=== PATIENT | male | born 1990 | race Two or more races ===

== ENCOUNTER 2023-11-05 16:37 | Outpatient (REF) | payer OTHER, SELFPAY ==
[2023-11-05 16:52] LABS: MANUAL DIFF FLAG NO
[2023-11-05 18:26] LABS: Basophils Percent Auto 0.5 % (0-2); Eosinophils Absolute Auto 0.4 X10*3/uL (0.0-0.4); Hematocrit 42.9 % (42.0-52.0); Hemoglobin 14.2 g/dl (14.0-18.0); Imm Gran Abs Auto 0.02 X10*3/uL (0.00-0.03); Imm Gran Pct Auto 0.3 % (0.0-0.4); Lymphocytes Absolute Auto 2.9 X10*3/uL (1.2-4.9); Mean Corpuscular HGB Conc 33.1 g/dl (31.0-36.0); Mean Corpuscular Hemoglobin 26.4 pg (27.0-33.0); Mean Corpuscular Volume 79.7 fL (80.0-98.0); Mean Platelet Volume 10.2 fL (9.4-12.4); Monocytes Absolute Auto 0.9 X10*3/uL (0.1-1.2); Monocytes Percent Auto 12.8 % (2-11); Neutrophils Absolute Auto 2.9 x10*3/uL (2.0-8.3); Neutrophils Percent Auto 40.4 % (45-73); Platelet Count 361 X10*3/uL (160-400); Red Blood Count 5.38 X10*6/uL (4.60-5.80); Red Cell Distribution Width 15.1 % (11.0-16.0); White Blood Count 7.3 X10*3/uL (4.8-10.8)
[2023-11-05 18:32] LABS: Estimated Average Glucose 105 mg/dL; Hemoglobin A1c % 5.3 % (<6.0)
[2023-11-05 18:47] LABS: Alanine Aminotransferase 39 U/L (0-40); Albumin Level 4.4 g/dL (3.5-5.0); Alkaline Phosphatase 75 U/L (39-117); Anion Gap 10 (12-20); Aspartate Amino Transferase 30 U/L (5-37); Bilirubin Total 0.3 mg/dL (0.0-1.0); Blood Urea Nitrogen 11 mg/dL (9-16); Calcium 9.8 mg/dL (8.4-10.2); Carbon Dioxide 30 mmol/L (22-29); Chloride 104 mmol/L (96-108); Cholesterol 172 mg/dL (<200); Estimated Glomerular Filt Rate > 60; Glucose Random 84 mg/dL (60-115); Potassium 3.9 mmol/L (3.3-5.1); Sodium 140 mmol/L (135-145)
[2023-11-05 19:01] LABS: Free T4 (Free Thyroxine) 0.86 ng/dL (0.71-1.85); Thyroid Stimulating Hormone 0.94 uIU/mL (0.32-4.0)
== END 2023-11-05 16:38 | disposition home or self-care (01) ==
LOC: HO.LAB 16:37
PROVIDERS: PCP Internal Medicine; Visit Provider Internal Medicine
DX: I10 Essential (primary) hypertension (principal); Z83.3 Family history of diabetes mellitus
CPT/HCPCS: 36415; 80053; 82465; 83036; 84439; 84443; 85025

== ENCOUNTER 2024-08-11 13:44 | Outpatient (REF) | payer OTHER, SELFPAY ==
[2024-08-14 19:53] LABS: TS Negative Control Passed; TS Panel A 0; TS Panel B 0; TS Positive Control Passed; TSpotTB Negative (Negative)
== END 2024-08-11 13:45 | disposition home or self-care (01) ==
LOC: HO.LAB 13:44
PROVIDERS: PCP Internal Medicine; Visit Provider Internal Medicine
DX: Z02.1 Encounter for pre-employment examination (principal)
CPT/HCPCS: 36415; 86481

== ENCOUNTER 2025-07-04 15:20 | Outpatient (AMB) | payer OTHER, SELFPAY ==
--- NOTE | 2025-07-04 15:21 | A.OFFPC_ITS ---
Vital Signs 07/04/25 15:26 Height 5 ft 9 in Weight 315 lb BMI 46.5 BP 204/130 H Blood Pressure Location Rt brachial Position Sitting Respiration 18 Pulse 91 Pulse Source Pulse Oximeter Temp 98.3 F Temp Source Temporal Artery Scan Pulse Oximetry (%) 99 Intake Visit Reasons: routine Press Operator Printing Required: No Accompanied by: Self / Same As Patient Allergies No Known Allergies Allergy (Verified 07/04/25 15:21) Tobacco use date assessed: 07/04/25 Dental Screening Did you have a dental visit in the last 12 months?: Yes HPI HPI Comments History of Present Illness Details The patient is a 35-year-old male presenting with essential hypertension. The patient reports a long-standing history of uncontrolled blood pressure for several years and was previously managed with Lisinopril under Dr. Richardson. The patient described being prescribed an increased dosage (two pills in the morning and night), which failed to control the hypertension. The patient denies any recent modifications to his antihypertensive regimen and emphasizes the persistent nature of his elevated blood pressure despite previous intervention. Hypertension is accompanied by a significant family history; his mother also suffers from hypertension, and his father due to complications related to a stroke and blood clots. The patient denies any recent symptoms such as chest pain, shortness of breath, nausea, vomiting, headaches, or weakness. Additionally, the patient has a history of cervical radiculopathy for the past 10 years and has been managed on Tramadol, Cyclobenzaprine, and Ibuprofen. The use of Tramadol has been daily with fluctuating doses corresponding to his work schedule. It is noted that the patient has had prior discussions about the dependency potential of these medications and expressed a willingness to seek alternative pain management approaches to reduce reliance on opioids. The patient?s social history of substance use is unremarkable. 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 He maintains an active lifestyle and has made significant dietary changes to support weight loss efforts, having lost 45 pounds from a past weight of 360 pounds. Medical History: - Essential Hypertension - Cervical Radiculopathy - Obesity - Chronic Allergic Rhinitis - Gastroesophageal Reflux Disease (GERD) - Needle Phobia Surgical History: - Carpal Tunnel Surgery - Tonsillectomy and Adenoidectomy Medications: - Tramadol for pain management related t o cervical radiculopathy - Cyclobenzaprine for muscle spasms - Ibuprofen as needed for pain - Fluticasone nasal spray for allergic r hinitis - Omeprazole for gastroesophageal reflux disease Family History: - Mother with Essential Hypertension - Father with a history of stroke relate d to blood clots - Father and younger brother with Diabet es Mellitus Social: - Employed in a [employer] ([employer]) with random drug testing - No tobacco use, past history of one-ti me smoking only - Minimal alcohol use: a beer once every three months - No illicit drug use; environment condu cive to a drug-free status due to employment requirements - Active lifestyle with physical activit y during work and personal time - Significant dietary changes implemente d to support weight management, notably reducing rice and bread intake [facility] Medical History (Updated 07/04/25 @ 16:03 by Danilo Urrutia MD) GERD without esophagitis Obesity (BMI 30-39.9) Cervical radiculopathy Allergic rhinitis Hypertension Social History Housing: House Patient Tobacco Use Status: Never used Tobacco e-Cigarette/Vaping Use: Never Used service: No Current occupational status: employed Current occupation: [employer] Questionnaire PHQ-9 Over the last 2 weeks, how often have you been bothered by any of the following problems? 1. Little interest or pleasure in doing things: not at all 2. Feeling down, depressed, or hopeless: not at all 3. Trouble falling or staying asleep, or sleeping too much: not at all 4. Feeling tired or having little energy: not at all 5. Poor appetite or overeating: not at all 6. Feeling bad about yourself - or that you are a failure or have let yourself or your family down: not at all 7. Trouble concentrating on things, such as reading the newspaper or watching television: not at all 8. Moving or speaking so slowly that other people could have noticed. Or the opposite - being so fidgety or restless that you have been moving around a lot more than usual: not at all 9. Thoughts that you would be better off or of hurting yourself in some way: not at all Total score: 0 Depression Screening Interpretation: Negative Depression Screening Done: Yes 18194 - PHQ-9 Billing: Yes Source: Developed by Drs. Ricci Crawford, Hortencia Dan, Audie Eckert and colleagues, with an educational alysa from [employer] Thrive Questionnaire Date Thrive assessed: 07/04/25 I am a: Patient What is your living situation today?: I have a steady place to live Within the past 12 months, did the food you bought not last and you didn't have the money to get more?: Never true Within the past 12 months, did you worry whether your food would run out before you got money to buy more?: Never true Do you have trouble paying for medicines?: No Do you have trouble getting transportation to medical appointments?: No Do you have trouble paying your heating and electricity bill?: No Do you have trouble taking care of your child, family member or friend?: No Do you have trouble with day-to-day activities such as bathing, preparing meals, shopping, managing finances, etc.?: No Are you currently unemployed and looking for a job?: No Are you interested in more education?: No THRIVE Score: 0 AUDIT C Alcohol Use Questionnaire (AUDIT-C) 1. How often do you have a drink containing alcohol?: Monthly or less 2. How many drinks containing alcohol do you have on a typical day when you are drinking?: 1 or 2 Total Score: 1 Score Reviewed/Action Taken: Yes SADAF-7 AMB Questionnaire SADAF-7 Date SADAF - 7 assessed: 07/04/25 Feeling nervous, anxious, or on edge: 0 = Not at all Not being able to stop or control worryin = Not at all Worrying too much about different things: 0 = Not at all Trouble relaxin = Not at all Being so restless that it is hard to sit still: 0 = Not at all Becoming easily annoyed or irritable: 0 = Not at all Feeling afraid as if something awful might happen: 0 = Not at all Total SADAF-7 score (0-4 normal; 5-9 mild; 10-14 moderate; 15-21 severe): 0 Source: Developed by Drs. Ricci Crawford, Hortencia Dan, Audie Eckert and colleagues, with an educational alysa from [employer]. SADAF-7 Assessment Billing SADAF-7 Assessment Tool: SADAF-7 Assessment 05223 Review of Systems Const Details: - Cardiovascular: Denies chest pain, palpitations - Respiratory: Denies shortness of breath, cough - Gastrointestinal: Reports GERD; denies heartburn on Omeprazole - Neurological: Denies headaches, dizziness, syncope - Musculoskeletal: Reports cervical pain associated with a pinched nerve - Allergic/Immunologic: Reports nasal symptoms controlled with nasal spray - Psychiatric/Behavioral: Denies anxiety, depression All systems reviewed & are unremarkable except as noted in HPI and below Physical exam (Primary Care) Vital Signs: Last Vital Signs Temp 98.3 F 07/04/25 15:26 Pulse 91 07/04/25 15:26 Resp 18 07/04/25 15:26 BP 204/130 H 07/04/25 15: Pulse Ox 99 07/04/25 15:26 BMI result Body Mass Index 46.5 Tobacco/Smoking Status: Tobacco use Status Tobacco use date assessed 07/04/25 07/04/25 15:29 Patient Tobacco Use Status Never used Tobacco 07/04/25 15:29 e-Cigarette/Vaping Use Never Used 07/04/25 15:29 Depression Screening Interpretation: Negative Const Other: General: +Alert and oriented, Well nourished, No acute distress. Eye: Pupils are equal, round and reactive to light, Intact accommodation, Extraocular movements are intact, Normal conjunctiva, Vision unchanged. HENT: Normocephalic, Atraumatic, Tympanic membranes are clear, Normal hearing, Oral mucosa is moist, No pharyngeal erythema, Ear canals patent. Respiratory: Lungs CTA bilaterally, No wheeze, Respirations are non-labored. Cardiovascular: Regular rate, Regular rhythm, S1 auscultated, S2 auscultated, No murmur, Good pulses equal in all extremities, Normal peripheral perfusion, No edema. Gastrointestinal: Soft, Non-tender, Non-distended, Normal bowel sounds, No organomegaly. Musculoskeletal: Normal range of motion, Normal strength, No tenderness, No swelling, No deformity, Normal gait. Integumentary: Warm, Dry, [place], Intact. Neurologic: Alert, Oriented, Normal sensory, Normal motor function, No focal defects, Cranial Nerves II-XII are grossly intact, Normal deep tendon reflexes. Psychiatric: Cooperative, Appropriate mood & affect, Normal judgment. Coding Level of Care Code New Pt Level 4 (72797) Complex EM visit Add On G2211 Diagnoses Hypertension, unspecified type I10 Hypertension type: unspecified Seasonal allergic rhinitis, unspecified trigger J30.2 Allergic rhinitis trigger: unspecified Allergic rhinitis seasonality: seasonal Cervical radiculopathy M54.12 Obesity (BMI 30-39.9) E66.9 GERD without esophagitis K21.9 Additional Codes SADAF-7 Assessment Billing - SADAF-7 Assessment Tool: SADAF-7 Assessment 15334 ([id number]) PHQ-9 - 93467 - PHQ-9 Billing: Yes ([id number]) Assessment & Plan Assessment & Plan (1) Hypertension: Comment: - Initiated Nifedipine 30mg daily for hypertension management due to persistent elevated blood pressure despite Lisinopril therapy. - Advised regular monitoring of blood pressure at home and to maintain a log for review at follow-up. - Recommended reduction in dietary sodium and continuation of weight loss efforts. Code(s): I10 - Essential (primary) hypertension Category: Medical Qualifiers: Hypertension type: unspecified Qualified Code(s): I10 - Essential (primary) hypertension (2) Allergic rhinitis: Comment: - Refilled Fluticasone nasal spray but with instructions to use sparingly due to potential steroid side effects. - Introduced Loratadine as an [id number] alternative to be trialed for efficacy. Code(s): J30.9 - Allergic rhinitis, unspecified Category: Medical Qualifiers: Allergic rhinitis trigger: unspecified Allergic rhinitis seasonality: seasonal Qualified Code(s): J30.2 - Other seasonal allergic rhinitis (3) Cervical radiculopathy: Comment: - Plan to gradually taper off Tramadol and collaborate with pain management specialists for multimodal pain control strategies. (Tramadol, Cyclobenzaprine & Ibuprofen per pain management) - Patient counseled on the potential for dependency on opioids and strategies for managing withdrawal safely Code(s): M54.12 - Radiculopathy, cervical region Category: Medical (4) Obesity (BMI 30-39.9): Comment: - Commended weight loss; advised continuation of current dietary and exercise regimen. - Discussed the impact of weight reduction on blood pressure control. Code(s): E66.9 - Obesity, unspecified Category: Medical (5) GERD without esophagitis: Comment: - Reinforced correct timing of Omeprazole intake before meals for maximum effect. - Suggested dietary modifications to identify and eliminate potential irritants. Code(s): K21.9 - Gastro-esophageal reflux disease without esophagitis Category: Medical Plan During the visit, we discussed the patient's persistent essential hypertension, acknowledging family history and previous management strategies. I emphasized the initiation of Nifedipine and the importance of home blood pressure monitoring for effective management. We discussed transitioning off Tramadol and utilizing pain management consultation for cervical radiculopathy. Shedding weight effectively will have a dual benefit for both hypertension and obesity reduction. I reiterated dietary modifications and correct medication timing for GERD. Exploring alternatives for allergic rhinitis was addressed, along with mindful use of Fluticasone. I respected his needle phobia, recommending precautions for stress reduction during phlebotomy encounters. Follow-up is organized for blood pressure review and assessment of therapy efficacy, with instructions to return as needed for untreated concerns. Orders: Orders HIV Ab/Ag Today I10 - Essential (primary) hypertension Lipid Panel Today I10 - Essential (primary) hypertension Syphilis Screen Today I10 - Essential (primary) hypertension TSH reflex Free T4 Today I10 - Essential (primary) hypertension Vitamin D 25-OH Total Today I10 - Essential (primary) hypertension Complete Blood Count Auto Diff Today I10 - Essential (primary) hypertension Comprehensive Met. Panel Today I10 - Essential (primary) hypertension Hemoglobin A1c Today I10 - Essential (primary) hypertension Hepatitis A,B,C Profile Today I10 - Essential (primary) hypertension Medications: New loratadine 10 mg PO DAILY PRN 30 tabs 3RF allergy symptoms J30.9 - Allergic rhinitis, unspecified fluticasone propionate 50 mcg/actuation 2 sprays intranasal DAILY 16 grams 3RF J30.9 - Allergic rhinitis, unspecified nifedipine ER 30 mg PO DAILY 30 tabs 0RF I10 - Essential (primary) hypertension Patient Instructions: - Take Nifedipine 30 mg once daily in the morning for high blood pressure. - Check blood pressure at home regularly and write down the numbers. - Continue efforts to lose weight and eat less salt. - Slowly reduce Tramadol use and look into other ways to manage pain. - Start taking Loratadine for allergies. - Use Fluticasone nasal spray sparingly. - Take Omeprazole 35-40 minutes before eating for best results. - Avoid foods and drinks that seem to make heartburn worse. - Get blood work done soon; go to the lab when you feel comfortable. - Walk or exercise regularly to stay active and healthy. - Come back in 30 days to see the effect of new treatments on blood pressure.
[2025-07-04 15:26] VITALS: BP 204/130; PULSE 91; RESP 18; TEMP 36.8; O2SAT 99; BMI 46.5
--- OUTSIDE RECORDS SUMMARY | 2025-07-04 17:38 | XMS_ITS | Clinical Summary ---
Author Organization [facility] Address [address] [place] [address] Care Team Providers Care Door To Door Salesman Name Role Phone Unavailable Primary Care Provider Unavailabl e Medications Medication Sig Dispensed Refills Start Date End Date Status traMADol (ULTRAM) 50 MG tablet TAKE 1 TABLET ORALLY EVERY 6 HOURS FOR 30 DAYS 0 12/29/2022 Active ibuprofen 800 MG tablet TAKE 1 TABLET BY MOUTH THREE TIMES A DAY. NEEDED FOR PAIN. 0 12/18/2022 Active cyclobenzaprine (FLEXERIL) 10 MG tablet TAKE 1 TABLET ORALLY THREE TIMES A DAY 0 12/10/2022 Active Family History Medical History Relation Name Comments Diabetes Brother Diabetes Father Relation Name Status Comments Brother Father Social History Tobacco Use Types Packs/Day Years Used Date Smoking Tobacco: Never Smokeless Tobacco: Never Tobacco Cessation:Counseling Given: Not Answered Alcohol Use Standard Drinks/Week Comments Never 0 (1 standard drink = 0.6 oz pur e alcohol) Sex and Gender Information Value Date Recorded Sex Assigned at Male 01/01/2023 11:32 AM EST Gender Identity Male 01/01/2023 11:32 AM EST Sexual Orientation Not on file Job Start Date Occupation Industry Not on file Not on file Not on file Last Filed Vital Signs Vital Sign Reading Time Taken Comments Blood Pressure - - Pulse - - Temperature - - Respiratory Rate - - Oxygen Saturation - - Inhaled Oxygen Concentration - - Weight 149.7 kg (330 lb) 01/01/2023 11:32 AM EST Height 175.3 cm (5' 9 ) 01/01/2023 11:32 AM EST Body Mass Index 48.73 01/01/2023 11:32 AM EST Plan of Treatment Health Maintenance Due Date Last Done Comments Hepatitis B Vaccines (1 of 3 - 3-dose series) 1988 Hepatitis C Screening 1988 COVID-19 Vaccine (#1) 1988 Depression Screening 2000 BMI Counseling 02/19/2006 Preventative Health Evaluation 02/19/2006 DTap / Tdap / Td (1 - Tdap) 02/19/2007 Influenza Vaccine (#1) 2025 Pneumococcal Vaccine Aged Out No long er eligible based on patient's age to complete this topic RSV Ped < 20 months Aged Out No longe r eligible based on patient's age to complete this topic
--- OUTSIDE RECORDS SUMMARY | 2025-07-04 17:38 | XMS_ITS | Clinical Summary ---
Author Organization [facility] Address [address] [place] [address] Care Team Providers Care S3B Multi Sensor Operator Name Role Phone Pcp, No Primary Care Provider Unavailabl e Allergies No known active allergies Medications albuterol (PROVENTIL HFA; VENTOLIN HFA) 108 (90 Base) MCG/ACT inhaler TAKE 1 EACH (INHALATION) 4 TIMES PER DAY ( NEEDED FOR WHEEZING) FOR 30 DAYS 5 Active cyclobenzaprine (FLEXERIL) 10 MG tablet TAKE 1 TABLET ORALLY THREE TIMES A DAY Active traMADol (ULTRAM) 50 MG tablet TAKE 1 TABLET ORALLY EVERY 6 HOURS FOR 30 DAYS Active lisinopril (PRINIVIL,ZeSTRIL) 40 MG tablet Take 20 mg by mouth 2 times a day. Active erythromycin (ILOTYCIN) ophthalmic ointmentIndication s:Bacterial conjunctivitis of left eye Administer 1 application(s) into the left eye nightly. 3.5 g 5 Active trimethoprim-polym yxin b (POLYTRIM) ophthalmic solutionIndication s:Bacterial conjunctivitis of left eye Administer 1 drop into the left eye every 4 (four) hours. 10 mL 5 Active Active Problems No known active problems Encounters Date Type Department Care Team Description 04/22/2025 7:10 PM EDT Office Visit [facility] [address] [place] [address] Stephen Lama MD Crespo, Amelia, APRN Bacterial conjunctivitis of left eye (Primary Dx); Foreign body sensation, left eye; Hypertension, unspecified type 04/22/2025 Travel from Last 3 Months Social History Tobacco Use Types Packs/Day Years Used Date Smoking Tobacco: Never Smokeless Tobacco: Never Sex and Gender Information Value Date Recorded Sex Assigned at Not on file Legal Sex Male 7:08 PM EDT Gender Identity Not on file Sexual Orientation Not on file Last Filed Vital Signs Vital Sign Reading Time Taken Comments Blood Pressure 170/123 04/22/2025 8:01 PM EDT Pulse 104 04/22/2025 7:39 PM EDT Temperature 36.9 C (98.5 F) 04/22/2025 7:39 PM EDT Respiratory Rate 18 04/22/2025 7:39 PM EDT Oxygen Saturation 100% 04/22/2025 7:39 PM EDT Inhaled Oxygen Concentration - - Weight - - Height - - Body Mass Index - - Plan of Treatment Health Maintenance Due Date Last Done Comments Hepatitis C Virus Screening 1988 HIV Screening 02/19/2001 DTaP/Tdap/Td Vaccines (1 - Tdap) 02/19/2007 Hepatitis B Vaccines (1 of 3 - 19+ 3-dose series) 02/19/2007 HPV Vaccines (1 - 3-dose SCD M series) 02/19/2015 COVID-19 Vaccine (2023-2 5 season) 2024 Influenza Vaccine 05/26/2025 Pneumococcal Vaccine: Pediat kylee (0-5 Years) and At-Risk Patients (6 to 49 Years) Aged Out No longer eligible b ased on patient's age to complete this topic Insurance [address] [place], [place] [id number] Care Teams S3B Multi Sensor Operator Relationship Specialty Start Date End Date Pcp, No PCP - General General Medicine 04/22/25
--- OUTSIDE RECORDS SUMMARY | 2025-07-04 17:38 | XMS_ITS ---
Author Name [facility] Unknown History of Medication Use Medication Directions Dispensed Refills Start Date End Date Stat erythromycin (ILOTYCIN) ophthalmic ointment Administer 1 application(s) into the left eye nightly. 04/22/2025 active trimethoprim-polymyxin b (POLYTRIM) ophthalmic solution Administer 1 drop into the left eye every 4 (four) hours. 04/22/2025 active albuterol (PROVENTIL HFA; VENTOLIN HFA) 108 (90 Base) MCG/ACT inhaler TAKE 1 EACH (INHALATION) 4 TIMES PER DAY ( NEEDED FOR WHEEZING) FOR 30 DAYS 03/12/2025 active cyclobenzaprine 10 mg tablet TAKE 1 TABLET ORALLY THREE TIMES A DAY active ibuprofen 800 mg tablet TAKE 1 TABLET BY MOUTH THREE TIMES A DAY. NEEDED FOR PAIN. active cyclobenzaprine (FLEXERIL) 10 MG tablet TAKE 1 TABLET ORALLY THREE TIMES A DAY active lisinopril (PRINIVIL,ZeSTRIL) 40 MG tablet Take 20 mg by mouth 2 times a day. active traMADol (ULTRAM) 50 MG tablet TAKE 1 TABLET ORALLY EVERY 6 HOURS FOR 30 DAYS active Problems Problem Status Onset Date Problem Type Date of Resolution Source Hypertension, unspecified type active EncounterDiagnosisAct [facility] CCT Foreign body sensation, left eye active EncounterDiagnosisAct [facility] Bacterial conjunctivitis of left eye active EncounterDiagnosisAct [facility] Closed fracture of fifth metatarsal bone active 2023-01-06 ProblemAct ENS_AONECT Encounters Encounter Type Encounter Reason Primary Diagnosis Location Date Ambulatory Eye Problem Eye Problem [facility] 04/22/2025 Ambulatory [facility] 07/24/2023 Ambulatory [facility] 07/17/2023 Ambulatory [facility] 06/17/2023 Ambulatory [facility] 06/15/2023 Ambulatory [facility] 06/01/2023 Ambulatory [facility] 06/01/2023 Ambulatory [facility] 05/11/2023 Ambulatory [facility] 04/06/2023 Ambulatory [facility] 03/10/2023 Ambulatory [facility] 03/02/2023 Ambulatory [facility] 02/10/2023 Care Team Organization Name Specialty Phone Email Start Date End Tramaine grimes De[facility] 04/22/2025 05/21/2025 Dextr 04/22/2025
== END 2025-07-04 15:45 | disposition home or self-care (01) ==
PROVIDERS: PCP Student in an Organized Health Care Education/Training Program; Visit Provider Student in an Organized Health Care Education/Training Program
DX: I10 Essential (primary) hypertension (principal); J30.2 Other seasonal allergic rhinitis; E66.9 Obesity, unspecified; Z68.42 Body mass index [BMI] 45.0-49.9, adult; M54.12 Radiculopathy, cervical region; K21.9 Gastro-esophageal reflux disease without esophagitis

== ENCOUNTER → 2025-07-04 15:20 | Outpatient (BNVA) | payer OTHER, SELFPAY | PROVIDERS: PCP Student in an Organized Health Care Education/Training Program; Visit Provider Student in an Organized Health Care Education/Training Program | DX: I10 Essential (primary) hypertension (principal); J30.2 Other seasonal allergic rhinitis; M54.12 Radiculopathy, cervical region; E66.9 Obesity, unspecified; Z68.42 Body mass index [BMI] 45.0-49.9, adult; K21.9 Gastro-esophageal reflux disease without esophagitis; Z79.891 Long term (current) use of opiate analgesic; Z79.899 Other long term (current) drug therapy; Z13.31 Encounter for screening for depression; Z13.39 Encounter for screening examination for other mental health and behavioral disorders | CPT/HCPCS: 96127 ==

== ENCOUNTER 2025-07-28 09:13 | Outpatient (REF) | payer OTHER, SELFPAY ==
--- OUTSIDE RECORDS SUMMARY | 2025-07-28 09:39 | XMS_ITS | Clinical Summary ---
Author Organization [facility] Address [address] [place] [address] Care Team Providers Care Forest Examiner Name Role Phone Unavailable Primary Care Provider [...]
--- OUTSIDE RECORDS SUMMARY | 2025-07-28 09:40 | XMS_ITS | Clinical Summary ---
Author Organization [facility] Address [address] [place] [address] Care Team Providers Care Recruitment Consultant Name Role Phone Pcp, No Primary Care [...] Active Active Problems No known active problems Social History Tobacco Use Types Packs/Day Years [...] of 3 - 19+ 3-dose series) 02/19/2007 Influenza Vaccine 05/26/2025 COVID-19 Vaccine (2023-2 5 season) 2025 HPV Vaccines (No Doses Required) Completed Pneumococcal Vaccine: Pediat kylee (0-5 Years) and At-Risk Patients (6 to 49 Years) Aged Out No longer eligible b ased on patient's age to complete this topic Insurance [address] [place], [place] [id number] Care Teams Recruitment Consultant Relationship Specialty Start Date End Date Pcp, No PCP - General General Medicine 04/22/25
[2025-07-28 10:22] LABS: MANUAL DIFF FLAG NO
[2025-07-28 10:26] LABS: Hematocrit 43.8 % (42.0-52.0); Hemoglobin 14.7 g/dl (14.0-18.0); Imm Gran Abs Auto 0.01 X10*3/uL (0.00-0.03); Imm Gran Pct Auto 0.1 % (0.0-0.4); Lymphocytes Absolute Auto 3.4 X10*3/uL (1.2-4.9); Mean Corpuscular HGB Conc 33.6 g/dl (31.0-36.0); Mean Corpuscular Hemoglobin 27.2 pg (27.0-33.0); Mean Corpuscular Volume 81.1 fL (80.0-98.0); NRBC Abs Auto 0.000 X10*3/uL (0.0-0.012); NRBC Pct Auto 0.0 /100WBC (0.0-0.2); Platelet Count 344 X10*3/uL (160-400); Red Blood Count 5.40 X10*6/uL (4.60-5.80); White Blood Count 8.2 X10*3/uL (4.8-10.8)
[2025-07-28 11:04] LABS: Alanine Aminotransferase 49 U/L (0-40); Albumin Level 4.8 g/dL (3.5-5.0); Alkaline Phosphatase 82 U/L (39-117); Anion Gap 10 (12-20); Aspartate Amino Transferase 33 U/L (5-37); Blood Urea Nitrogen 12 mg/dL (9-16); Calcium 9.4 mg/dL (8.4-10.2); Carbon Dioxide 30 mmol/L (22-29); Chloride 103 mmol/L (96-108); Cholesterol 197 mg/dL (<200); Estimated Glomerular Filt Rate > 60; HDL Cholesterol 39 mg/dL (>40); Potassium 3.3 mmol/L (3.3-5.1); Sodium 140 mmol/L (135-145); Total Protein 7.8 g/dL (6.5-8.0); Triglycerides 159 mg/dL (<150)
[2025-07-28 11:05] LABS: Syphilis Screen Nonreactive (Nonreactive)
[2025-07-28 11:17] LABS: HBS Num1 3.61 mIU/mL (0-7.99); HBc Num1 0.06 S/CO (0.00-0.79); HBsAGNum1 0.35 S/CO (0.00-0.99); HIV Num 1 0.10 S/CO (0.00-0.99); Hepatitis A Antibody IgM 0.20 Index (0-0.79); Hepatitis B Surface Antigen Negative (Negative); ~HepC Num1 0.15 S/CO (0.00-0.79); ~Hepatitis A Antibody IgM Nonreactive (Nonreactive); ~Hepatitis B Surface Antibody NONREACTIVE (Nonreactive); ~Hepatitis C Antibody Nonreactive (Nonreactive)
== END 2025-07-28 09:14 | disposition home or self-care (01) ==
LOC: HO.10HDL 09:13
PROVIDERS: Visit Provider Student in an Organized Health Care Education/Training Program
DX: Z11.4 Encounter for screening for human immunodeficiency virus [HIV] (principal); Z13.1 Encounter for screening for diabetes mellitus; Z13.21 Encounter for screening for nutritional disorder; I10 Essential (primary) hypertension
CPT/HCPCS: 36415; 80053; 80061; 82306; 83036; 84443; 85025; 86704; 86706; 86709; 86780; 86803; 87340; 87389

== ENCOUNTER 2025-08-02 13:16 | Outpatient (AMB) | payer OTHER, SELFPAY ==
--- NOTE | 2025-08-02 13:17 | MHC.PC.OV ---
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 The patient reports that he has been monitoring his blood pressure at home, with recent readings consistently in the 170s mmHg range. He noted a single reading at 153 mmHg. This represents an improvement from previous readings in the 200s range. He has been adherent to his medication regimen but acknowledges challenges due to a hectic lifestyle. In addition, the patient reports elevated cholesterol levels and liver enzymes which were recently identified on blood work. The liver enzyme abnormalities are thought to be secondary to fatty liver disease, as his hepatitis screening was negative. The patient has a history of experiencing borderline high liver enzyme levels. The patient also reports elevated triglycerides and cholesterol. He is managing his allergies with loratadine, which has been effective in controlling his symptoms. He reports experiencing nasal congestion at night, which is likely affected by previous long-term steroid use. Medical History: - Essential Hypertension - Hyperlipidemia - Elevated Liver Enzymes, likely due to fatty liver - Allergic Rhinitis Medications: - Loratadine, 10 mg for allergic rhinitis - Nifedipine, 30 mg for hypertension Diagnostic Results: - Labs: Elevated liver enzymes; high cholesterol and triglycerides; hepatitis negative Social: - The patient has a demanding work schedule, impacting lifestyle modifications such as diet changes - Current weight management efforts include dietary adjustments although specifics were not provided [facility] Medical History (Updated 08/02/25 @ 13:38 by Danilo Urrutia MD) Elevated liver enzymes Hyperlipidemia GERD without esophagitis Obesity (BMI 30-39.9) Cervical radiculopathy Allergic rhinitis Hypertension Social History Housing: House Patient Tobacco Use Status: Never used Tobacco e-Cigarette/Vaping Use: Never Used service: No Current occupational status: employed Current occupation: [employer] Questionnaire Thrive Questionnaire Date Thrive assessed: 07/04/25 SADAF-7 AMB Questionnaire SADAF-7 Date SADAF - 7 assessed: 07/04/25 Source: Developed by Drs. Ricci Crawford, Hortencia Dan, Audie Eckert and colleagues, with an educational alysa from [employer]. Review of Systems Const Details: - Cardiovascular: Reports hypertension - Respiratory: Denies any ongoing significant respiratory issues; notes nasal congestion at night - Gastrointestinal: Denies any current gastrointestinal symptoms - Allergic/Immunologic: Reports effective control of allergic symptoms with loratadine All systems reviewed & are unremarkable except as reviewed in HPI and above Physical exam (Primary Care) Vital Signs: Last Vital Signs Temp 98.7 F 08/02/25 13:19 Pulse 91 08/02/25 13:19 Resp 18 08/02/25 13:19 BP 170/96 H 08/02/25 13:19 Pulse Ox 99 08/02/25 13:19 Oxygen Delivery Method Room Air 08/02/25 13:19 BMI result Body Mass Index 46.5 Tobacco/Smoking Status: Tobacco use Status Tobacco use date assessed 07/04/25 08/02/25 13:26 Patient Tobacco Use Status Never used Tobacco 08/02/25 13:26 e-Cigarette/Vaping Use Never Used 08/02/25 13:26 Thrive Assessment: Date of Thrive Assessment Date Thrive assessed 07/04/25 08/02/25 13:26 Const Other: General: +Alert and oriented, Well nourished, No acute distress. Eye: Pupils are equal, round and reactive to light, Intact accommodation, Extraocular movements are intact, Normal conjunctiva, Vision unchanged. HENT: Normocephalic, Atraumatic, Tympanic membranes are clear, Normal hearing, Oral mucosa is moist, No pharyngeal erythema, Ear canals patent. Respiratory: Lungs CTA bilaterally, No wheeze, Respirations are non-labored. Cardiovascular: Regular rate, Regular rhythm, S1 auscultated, S2 auscultated, No murmur, Good pulses equal in all extremities, Normal peripheral perfusion, No edema. Gastrointestinal: Soft, Non-tender, Non-distended, Normal bowel sounds, No organomegaly. Musculoskeletal: Normal range of motion, Normal strength, No tenderness, No swelling, No deformity, Normal gait. Integumentary: Warm, Dry, Mcleod, Intact. Neurologic: Alert, Oriented, Normal sensory, Normal motor function, No focal defects, Cranial Nerves II-XII are grossly intact, Normal deep tendon reflexes. Psychiatric: Cooperative, Appropriate mood & affect, Normal judgment. Coding Level of Care Code Est Pt Level 4 (89826) Complex EM visit Add On G2211 Diagnoses Hypertension, unspecified type I10 Hypertension type: unspecified Obesity (BMI 30-39.9) E66.9 Other hyperlipidemia E78.49 Hyperlipidemia type: other hyperlipidemia Elevated liver enzymes R74.8 Seasonal allergic rhinitis, unspecified trigger J30.2 Allergic rhinitis trigger: unspecified Allergic rhinitis seasonality: seasonal Cervical radiculopathy M54.12 Assessment & Plan Assessment & Plan (1) Hypertension: Comment: - Continue current antihypertensive regimen with nifedipine. - Initiate chlorthalidone, a diuretic, to further assist in blood pressure control and aim for reductions to target 130-140 mmHg range. - Discussed maintaining home blood pressure monitoring, allowing for expected reduction to 150s and eventually reaching desired levels. Code(s): I10 - Essential (primary) hypertension Category: Medical Qualifiers: Hypertension type: unspecified Qualified Code(s): I10 - Essential (primary) hypertension (2) Obesity (BMI 30-39.9): Comment: - Commended weight loss; advised continuation of current dietary and exercise regimen. - Discussed the impact of weight reduction on blood pressure control and cholestrol Code(s): E66.9 - Obesity, unspecified Category: Medical (3) Hyperlipidemia: Comment: - Discussed lifestyle modifications with emphasis on dietary changes to address high cholesterol and triglycerides. (Given age will hold off on treatment) - Plan to follow up on lipid panel in subsequent visits. Code(s): E78.5 - Hyperlipidemia, unspecified Category: Medical Qualifiers: Hyperlipidemia type: other hyperlipidemia Qualified Code(s): E78.49 - Other hyperlipidemia (4) Elevated liver enzymes: Comment: - Recommended weight management strategies to address suspected non-alcoholic fatty liver disease and potential decrease in liver enzyme levels. - Hepatitis Panel Negative Code(s): R74.8 - Abnormal levels of other serum enzymes Category: Medical (5) Allergic rhinitis: Comment: - Refilled Fluticasone nasal spray but with instructions to use sparingly due to potential steroid side effects. - Continue daily loratadine; consider timing change to night if symptomatic at bedtime. Code(s): J30.9 - Allergic rhinitis, unspecified Category: Medical Qualifiers: Allergic rhinitis trigger: unspecified Allergic rhinitis seasonality: seasonal Qualified Code(s): J30.2 - Other seasonal allergic rhinitis (6) Cervical radiculopathy: Comment: - Continue (Tramadol, Cyclobenzaprine & Ibuprofen per pain management) - Patient counseled on the potential for dependency on opioids and strategies for managing withdrawal safely Code(s): M54.12 - Radiculopathy, cervical region Category: Medical Plan: Health Maintenance: - Encourage dietary changes to support cholesterol reduction and weight management - Reinforced importance of consistent blood pressure monitoring Patient was informed and verbally consented to the use of an ambient scribe for clinic note documentation during this visit. Plan During the visit, I discussed with the patient the management of his essential hypertension, emphasizing the importance of achieving blood pressure control through medication adjustments and monitoring. The potential benefits and risks of adding chlorthalidone to his regimen were reviewed, and the objective to lower blood pressure readings to safer levels was outlined. We also addressed his hyperlipidemia, focusing on diet modification as an initial approach. I explained to him how these lifestyle changes can impact his cholesterol and triglyceride levels positively, with follow-up evaluations planned. Given his elevated liver enzymes, likely attributed to fatty liver, we discussed the role of weight management. I emphasized the importance of these measures in overall metabolic health. For allergic rhinitis, I continued the prescription of loratadine and advised on possible timing adjustments to help with nighttime symptoms. The importance of ensuring the sleeping environment is adequately humidified was deliberated. Medications: New chlorthalidone 12.5 mg (1/2 x 25 mg) PO DAILY 45 tabs 0RF 90 days Patient Instructions: - Start taking chlorthalidone as prescribed for blood pressure management - Keep monitoring your blood pressure at home - Make dietary changes to help reduce cholesterol levels - Continue taking loratadine as directed and consider taking it at bedtime if needed - Ensure your bedroom environment is adequately humidified
[2025-08-02 13:19] VITALS: BP 170/96; PULSE 91; RESP 18; TEMP 37.1; O2SAT 99; BMI 46.5
== END 2025-08-02 13:36 | disposition home or self-care (01) ==
LOC: HO.HMCHD 13:17
PROVIDERS: PCP Student in an Organized Health Care Education/Training Program; Visit Provider Student in an Organized Health Care Education/Training Program
DX: I10 Essential (primary) hypertension (principal); E66.9 Obesity, unspecified; E78.49 Other hyperlipidemia; R74.8 Abnormal levels of other serum enzymes; J30.2 Other seasonal allergic rhinitis; M54.12 Radiculopathy, cervical region